=== PATIENT | female | born 1955 | race Caucasian/White ===

== ENCOUNTER 2024-06-26 18:07 | Emergency (ER) | payer MEDICARE, OTHER, SELFPAY ==
[2024-06-26 18:13] VITALS: BP 140/75
[2024-06-26 18:46] LABS: % Basophils 0.7 % (0-2); % Eosinophils 0.9 % (0-6); % Immature Granulocytes 0.8 % (0-0.5); % Lymphocytes 25.7 % (20.5-51.1); % Monocytes 8.6 % (1.7-9.3); % Neutrophils 63.3 % (42.2-75.2); Absolute Basophils 0.1 10^3/uL (0-0.2); Absolute Eosinophils 0.1 10^3/uL (0-0.7); Absolute Immature Granulocytes 0.1 10^3/uL (0-0.05); Absolute Lymphocytes 2.9 10^3/uL (1.2-3.4); Hematocrit 27.5 % (37.0-47.0); Hemoglobin 8.4 g/dL (12.0-16.0); Mean Corp Hgb Conc. 30.5 g/dL (33.0-37.0); Mean Corpuscular Hgb 24.6 pg (27.0-31.0); Mean Corpuscular Volume 80.4 fL (81.0-99.0); Mean Platelet Volume 8.4 fL (7.4-10.4); Nucleated Red Blood Cells % 1.2 %; Platelet Count 319 10^3/uL (130-400); Red Blood Cell Count 3.42 10^6/uL (4.20-5.40); Red Cell Dist. Width 18.3 % (11.5-14.5); White Blood Cell Count 11.1 10^3/uL (4.8-10.8)
[2024-06-26 19:00] LABS: ALT (SGPT) 28 U/L (0-35); AST (SGOT) 251 U/L (14-36); Albumin 3.3 g/dl (3.5-5.0); Alkaline Phosphatase 175 U/L (38-126); Blood Urea Nitrogen 20 mg/dl (7-17); Calcium 9.4 mg/dl (8.4-10.2); Carbon Dioxide 26 mmol/L (22-30); Chloride 99 mmol/L (98-107); Glucose 108 mg/dl (70-99); Potassium 5.2 mmol/L (3.5-5.1); Sodium 133 mmol/L (135-145); Total Bilirubin 0.4 mg/dl (0.2-1.3); Total Protein 6.5 g/dl (6.3-8.2); eGFR > 60.00
[2024-06-26 19:31] LABS: TSH Reflex To Free T4 3.36 uIU/ml (0.47-4.68)
[2024-06-26 21:00] VITALS: BMI 28.3
[2024-06-26 21:01] VITALS: BP 127/56
--- NOTE | 2024-06-26 21:24 | ED.GENMED ---
History of Present Illness
General
Chief Complaint: Headache
Time Seen by Provider: 06/26/24 20:58
History of Present Illness
History of Present Illness:
69-year-old female presents the emergency department for evaluation of worsening fatigue for the past several months. Daughter is also concerned that she seems to be intermittently confused and has had headaches and fluctuating BPs. Reports
exertional dyspnea with no chest pain. No abdominal pain, nausea, or vomiting.
Past History
Past History
ED Past Medical History: Cancer, HTN and Hypercholesterolemia
ED Past Surgical History: Gynecological (Breast cancer) and Other (Rectal surgery for fissure)
Social History
Tobacco: Former smoker
Alcohol: Occasional
Personal:
Living: with family
Review of Systems
Review of Systems
Allergies reviewed?: Yes
All Other Systems: ROS reviewed and negative except as documented in HPI and ROS
Phy Exam
Physical Exam
Physical Exam:
GEN: Well appearing, NAD, WDWN
HEENT: Oral mucosa moist, no scleral icterus
Cardiac: Regular rate And rhythm, no murmurs
Lung: No respiratory distress, no tachypnea
Rectal: Brown stool in the rectal vault, heme-negative
MSK: No gross deformity or injuries
Skin: Good color, no pallor or jaundice, no rashes
Neuro: AO x3, Cranial nerves II through XII grossly intact, moves all extremities freely
Psych: Calm, cooperative
Course
Orders/Labs/Results
Orders:
Orders
06/26/24 18:25
CT Head W/o Iv Contrast Urgent
Comment:
Reason For Exam: headache
06/26/24 18:30
CMP [Comprehensive Metabolic Panel] Urgent
Complete Blood Count/With Diff Urgent
Ferritin Urgent
Comment: ADD ON
Iron Urgent
Comment: ADD ON
TSH Reflex To Free T4 Urgent
Total Iron Binding Urgent
Comment: ADD ON
06/26/24 21:23
Add On- LAB Urgent
Tests Added?: iron, TIBC, ferritin
06/26/24 21:34
CR Chest - 2 Views Urgent
Comment:
Reason For Exam: exertional dyspnea
06/26/24 22:48
Blood Bank Products [* Blood Bank Products] Urgent
Blood Bank Products: *Packed RBC Leuko(PRBC's)
Quantity: 1
Transfuse Today: Yes
Reason: Anemia
06/26/24 23:25
Type+Screen Urgent
06/26/24 23:46
ABO2 Urgent
BBK Wristband Number:
Associate notified that ABO2 has been ordered: [id number]
Date: 06/26/24
Time: 23:39
Composite Worker ID: [id number]
Abnormal Lab Results
06/26/24 06/26/24
18:30 23:25
WBC 11.1 H 10^3/uL
(4.8-10.8)
RBC 3.42 L 10^6/uL
(4.20-5.40)
Hgb 8.4 L g/dL
(12.0-16.0)
Hct 27.5 L %
(37.0-47.0)
MCV 80.4 L fL
(81.0-99.0)
MCH 24.6 L pg
(27.0-31.0)
MCHC 30.5 L g/dL
(33.0-37.0)
RDW 18.3 H %
(11.5-14.5)
Abs Immat Gran (auto) 0.1 H 10^3/uL
(0-0.05)
Absolute Neuts (auto) 7.0 H 10^3/uL
(1.4-6.5)
Absolute Monos (auto) 1.0 H 10^3/uL
(0.1-0.6)
Immature Gran % 0.8 H %
(0-0.5)
Sodium 133 L mmol/L
(135-145)
Potassium 5.2 H mmol/L
(3.5-5.1)
BUN 20 H mg/dl
(7-17)
Glucose 108 H mg/dl
(70-99)
TIBC 239 L ug/dl
(265-497)
% Saturation 15 L %
(20-50)
Ferritin 4220.0 H ng/ml
(11.1-264.0)
AST 251 H U/L
(14-36)
Alkaline Phosphatase 175 H U/L
(38-126)
Albumin 3.3 L g/dl
(3.5-5.0)
Crossmatch IS Only See Detail
06/26/24 18:30
06/26/24 18:30
Vital Signs
Initial and Last Documented VS:
Initial Vital Signs
Temp Pulse Resp BP Pulse Ox
98.5 F 93 20 140/75 100
06/26/24 18:13 06/26/24 18:13 06/26/24 18:13 06/26/24 18:13 06/26/24 18:13
Last Documented Vital Signs
Temp Pulse Resp BP Pulse Ox
98.5 F 73 18 124/65 96
06/27/24 03:58 06/27/24 03:48 06/27/24 03:48 06/27/24 03:48 06/27/24 03:45
MDM/Problems Addressed
MDM/Problems Addressed:
Patient's anemia is likely the cause of her symptoms. She has heme-negative stool and low BUN which is reassuring against GI bleed. Certainly concerning that she has markedly elevated ferritin level TIBC, this is concerning for anemia of
malignancy versus inflammatory anemia. Given her significant symptoms we will give 1 unit PRBCs and recommend close outpatient hematology follow-up. She follows primarily with [facility] and plans to follow-up there when she
returns home
*Critical Care Note
Total Time (30-74mins, 75-104mins- exclusive of procedures): Not Applicable
ED Attending Note
-
Portions of this chart may have been created with voice recognition software.� Occasional wrong word or��sound alike� substitutions may have occurred due to the inherent limitations of voice recognition software.
Discharge Plan
Departure
Patient Disposition: Home (Routine Discharge)
Date of Disposition: 06/27/24
Time of Disposition: 03:17
Patient with high blood pressure during this ER visit?: No
Discharge Problem:
Symptomatic anemia
Instructions: Anemia overview
Prescriptions:
No Action
levofloxacin 500 MG tablet
500 mg PO DAILY Qty: 9 0RF
metronidazole 500 MG tablet
500 mg PO TID Qty: 29 0RF
Referrals:
Cresencio Caceres MD [Family Provider] -
Activity Restrictions/Additional Instructions:
As we discussed your hemoglobin is low which is the main cause of your symptoms. Iron panel is concerning for cause such as inflammation and malignancy. It is imperative that you follow-up with your primary care physician and a local associate research scientist
at [facility] to discuss next steps
Have your primary doctor recheck your blood counts in 3-7 days
Interventions
Interventions:
*Risk Screen - Suicide Last Done: 06/26/24 20:55
*General Assessment Last Done: 06/26/24 20:55
*Neglect/Abuse Screening Last Done: 06/26/24 20:55
ED- Fall Risk Assessment Last Done: 06/26/24 21:03
*ED COVID-19 Vaccine History Last Done: 06/26/24 18:13
*Nursing Disposition Last Done: 06/27/24 04:00
ED- Neurological Assessment Last Done: 06/26/24 21:02
Discharge Date and Time
Discharge Date/Time: 06/27/24 04:00
Print Language: MACEDONIAN
[2024-06-26 22:00] VITALS: BP 117/55
[2024-06-26 22:06] LABS: Iron 38 ug/dl (37-170)
[2024-06-26 22:15] LABS: Percent Saturation 15 % (20-50); Total Iron Binding Capacity 239 ug/dl (265-497)
[2024-06-26 23:31] VITALS: BP 119/60
[2024-06-27] VITALS (8 sets, daily range): BP systolic 106–124; BP diastolic 53–65
== END 2024-06-27 04:00 | disposition home or self-care (01) ==
LOC: EMR 18:07
PROVIDERS: Emergency Medicine; EMERGENCY PHYSICIAN Emergency Medicine; FAMILY PHYSICIAN Internal Medicine
DX: D64.9 Anemia, unspecified (principal); I10 Essential (primary) hypertension; E78.00 Pure hypercholesterolemia, unspecified; Z87.891 Personal history of nicotine dependence; Z85.3 Personal history of malignant neoplasm of breast
CPT/HCPCS: 99284; 70450; 71046; 80053; 82728; 83540; 83550; 84443; 85025; 86850; 86900; 86901; 86920; 99285; P9016